=== PATIENT | female | born 1945 | race Caucasian/White ===

== ENCOUNTER 2018-06-19 14:02 | Inpatient (IN) | payer BC, MEDICARE ==
[~2018-06-19] VITALS: Ht 167.6 cm; Wt 99.4 kg
[2018-06-19] VITALS (9 sets, daily range): BP systolic 103–146; BP diastolic 54–117
--- NOTE | ~2018-06-19 | EKG ---
[place], [place] ELECTROCARDIOGRAM REPORT NAME: MAYITO LANDA UNIT #: [id number] ROOM: [facility] DOCTOR: UNRULY DRAFT REPORT BIRTHDATE: [birth year] [facility] Test Date: 2018-06-19 Test Time: 16:18:57 Pat Name: MAYITO LANDA Department: Room: [facility] 1 Gender: F Slide Developer: : 1945 Requested By: CROW MARIN Order Number: [id number] Reading MD: Aquiles Jean MD Measurements Intervals [place] Rate: 140 P: [place]: QRS: -1 QRSD: 88 T: 145 QT: 323 QTc: 493 Interpretive Statements Atrial fibrillation Frequent PVCs Low voltage, extremity leads Abnormal R-wave progression, late transition Nonspecific T abnormalities, lateral leads Compared to earlier ECG this date PVCs are now present Electronically Signed On 06-19-2018 17:35:46 PST by Aquiles Jean MD CM:EKGRPT:ELECTROCARDIOGRAM REPORT [id number] 1735 CROW PAZ DRAFT REPORT CROW MARIN DO
--- NOTE | ~2018-06-19 | EKG ---
[place], [place] ELECTROCARDIOGRAM REPORT NAME: MAYITO LANDA UNIT #: [id number] ROOM: 515 DOCTOR: UNRULY DRAFT REPORT BIRTHDATE: [birth year] [facility] [place] [facility] Test Date: 2018-06-19 Test Time: 14:17:19 Pat Name: MAYITO LANDA Department: Room: [facility] Gender: F Director Clinical Applications: : 1945 Requested By: BONI WATSON Order Number: [id number] Reading MD: Aquiles Jean MD Measurements Intervals [place] Rate: 162 P: [place]: QRS: 4 QRSD: 92 T: 148 QT: 279 QTc: 459 Interpretive Statements Atrial fibrillation with rapid V-rate Low voltage, extremity leads Abnormal R-wave progression, late transition Nonspecific T abnormalities, lateral leads No previous ECG available for comparison Electronically Signed On 06-19-2018 17:30:44 PST by Aquiles Jean MD CM:EKGRPT:ELECTROCARDIOGRAM REPORT 1417 1730 BONI PAZ DRAFT REPORT BONI WATSON DO
--- NOTE | ~2018-06-19 | PR ---
[place], [place] PROGRESS NOTE NAME: MAYITO LANDA [facility] #: [id number] UNIT #: [id number] ROOM: 515 DOCTOR: JOSE DALTON MD BIRTHDATE: [birth year] DOS: 06/21/2018 SUBJECTIVE: The patient was seen at her bedside today, 06/21/2018, for followup of her newly documented atrial fibrillation with rapid ventricular response. The patient's rate remained somewhat difficult to control. I reviewed her echocardiogram yesterday and it does show global hypokinesis of the left ventricle with a moderately dilated left ventricular chamber. There is mild concentric left ventricular hypertrophy. Estimated ejection fraction is between 30% and 35% and diastole could not be fully assessed. The left atrium and right atrium were both severely dilated and the inferior vena cava was also dilated consistent with elevated central venous pressures. PHYSICAL EXAMINATION: VITAL SIGNS: Today, her pulse is 110 and irregularly irregular. Blood pressure is 110/74. She is afebrile. NECK: Supple. She has no jugular distention. She does have mild hepatojugular reflux. Carotids are full. There are no bruits. She has no neck or supraclavicular masses and no thyromegaly. LUNGS: Respirations are unlabored. CHEST: Has decreased breath sounds at the bases. ABDOMEN: Benign. EXTREMITIES: Showed trace edema. IMPRESSION: 1. Newly documented atrial fibrillation with rapid ventricular response. 2. Acute combined systolic and diastolic heart failure. 3. Essential hypertension. 4. Probable type 2 diabetes mellitus. 5. Dilated cardiomyopathy with ejection fraction between 30% and 35%. PLAN: It is not clear at this point whether the patient's cardiomyopathy precipitated her atrial fibrillation or whether she might have a tachycardia-induced cardiomyopathy. Thus far, her evaluation has been otherwise unremarkable with normal thyroid indices, etc. We will proceed with a pharmacologic stress test in the morning to evaluate for the possibility of ischemia as a cause for her left ventricular dysfunction. If that is unremarkable, then efforts will be made to control her rate and provide guideline directed medical therapies. If her left ventricular function does not improve with an improvement in her heart rate, she may be a candidate ultimately for defibrillator therapy. Please note her atria are both extremely large and therefore the chances of her obtaining and maintaining sinus rhythm with a cardioversion are very small. We will anticoagulate her while we provide rate control, but I do not plan at this point to consider a cardioversion. I thank the hospitalist physicians for asking our advice regarding her care. [place], [place] PROGRESS NOTE NAME: MAYITO LANDA UNIT #: [id number] ROOM: [facility] DOCTOR: JOSE DALTON MD BIRTHDATE: [birth year] JOSE DALTON MD CM:PNTRANS [phone] JOSE DALTON MD 06/22/18 1839 interface
--- NOTE | ~2018-06-19 | EKG ---
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
--- NOTE | ~2018-06-19 | PR ---
[place], [place] PROGRESS NOTE NAME: MAYITO LANDA UNIT #: [id number] ROOM: 515 DOCTOR: JOSE DALTON MD BIRTHDATE: [birth year] DOS: 06/22/2018 SUBJECTIVE: The patient was seen in the Cardiology Department prior to her pharmacologic stress test. She denies any problems overnight and specifically does not have dyspnea, palpitations, or chest discomfort. She is a 73-year-old woman who presented initially with worsening cough, dyspnea, and peripheral edema. She was found to be in atrial fibrillation with a rapid ventricular response. Her echocardiogram done yesterday did show a moderately dilated left ventricle with global hypokinesis, mild concentric left ventricular hypertrophy, and an ejection fraction between 30 and 35%. The right ventricle was also moderately dilated. The atria were severely dilated. She did not have any significant valvular disease. PHYSICAL EXAMINATION: VITAL SIGNS: Today, her pulse is 84 and irregularly irregular. Blood pressure is 100/50. She is afebrile. She weighs 99.4 kg and has a body mass index of 35.4. NECK: Supple. She has no jugular distention. Carotids are full. LUNGS: Respirations are unlabored. Chest is clear. HEART: Has an irregularly irregular rhythm without murmurs or gallops. ABDOMEN: Benign. EXTREMITIES: Showed no edema. IMPRESSION: 1. Newly documented atrial fibrillation. 2. Dilated left ventricle with global hypokinesis. It is not clear at this point whether she has a primary cardiomyopathy that led to the atrial fibrillation or if she has a tachymyopathy due to atrial fibrillation with rapid ventricular response. 3. Acute combined systolic and diastolic heart failure. 4. History of hypertension. PLAN: The patient is being anticoagulated and we are working to control her rate. We will proceed with a pharmacologic stress test today to evaluate her for coronary artery disease as a cause for her left ventricular dysfunction. After that, we will emphasize guideline directed medical therapies and close followup for her left ventricular dysfunction. I thank the hospitalist physicians for asking our advice regarding her care. [place], [place] PROGRESS NOTE NAME: MAYITO LANDA UNIT #: [id number] ROOM: 515 DOCTOR: JOSE DALTON MD BIRTHDATE: [birth year] JOSE DALTON MD CM:PNRAMBO [id number] JOSE DALTON MD 06/22/18 1220 interface
--- NOTE | ~2018-06-19 | EKG ---
[place], [place] ELECTROCARDIOGRAM REPORT NAME: MAYITO LANDA UNIT #: [id number] ROOM: [facility] DOCTOR: UNRULY DRAFT REPORT BIRTHDATE: [birth year] [facility] Test Date: 2018-06-19 Test Time: 20:09:06 Pat Name: MAYITO LANDA Department: Room: [facility] 1 Gender: F Music Autographer: Lana Parikh : 1945 Requested By: CROW MARIN Order Number: [id number] Reading MD: Aquiles Jean MD Measurements Intervals [place] Rate: 130 P: [place]: QRS: -24 QRSD: 94 T: 140 QT: 323 QTc: 475 Interpretive Statements Atrial fibrillation Ventricular premature complex Borderline left axis deviation Probable anterior infarct, age indeterminate Lateral leads are also involved No change from earlier ECG this date Electronically Signed On 06-20-2018 9:30:57 PST by Aquiles Jean MD CM:EKGRPT:ELECTROCARDIOGRAM REPORT 08 9 CROW PAZ DRAFT REPORT CROW MARIN DO
[2018-06-19 14:41] LABS: BASO % 0.4 % (0.0-1.0); HEMATOCRIT 40.2 % (37.0-47.0); HEMOGLOBIN 12.8 g/dl (12.0-16.0); LYMPH % 25.2 % (27.0-41.0); MEAN CELL VOLUME 89.9 fl (81.0-99.0); MEAN CORPUSCULAR HGB 28.6 pg (27.0-31.0); MEAN CORPUSCULAR HGB CONC 31.8 g/dl (33.0-37.0); MEAN PLATELET VOLUME 11.5 fl (9.6-12.3); MONO # 0.6 10*3/uL (0.1-1.0); MONO % 7.7 % (3.0-9.0); NEUT # 5.4 10*3/uL (2.3-7.9); NEUT % 66.5 % (47.0-73.0); PLATELET COUNT AUTOMATED 225 10*3/uL (130-400); RED BLOOD COUNT 4.47 10*6/uL (4.10-5.10); RED CELL DISTRI WIDTH 13.6 % (0-14.5); WHITE BLOOD COUNT 8.1 10*3/uL (4.8-10.8)
[2018-06-19 14:50] LABS: ACT PARTIAL THROMBO TIME 23.3 SECONDS (20.8-31.5); INTERNATIONAL NORM RATIO 1.1 (2.0-3.5)
[2018-06-19 14:57] LABS: ALBUMIN 3.4 gm/dl (3.1-4.5); ALKALINE PHOSPHATASE 91 U/L (45-117); BUN 11 mg/dl (7-24); CHLORIDE 94 mmol/L (98-107); CREATININE 0.74 mg/dL (0.55-1.02); LIPASE 205 U/L (73-393); POTASSIUM 3.6 mmol/L (3.5-5.1); SGOT/AST 17 IU/L (3-35); SGPT/ALT 25 U/L (12-78); SODIUM 130 mmol/L (136-145); TOTAL PROTEIN 6.7 gm/dL (6.4-8.2)
[2018-06-19 15:00] LABS: TROPONIN I 0.022 ng/ml (<0.045)
[2018-06-19] MEDS ORDERED: CLARITIN10 MG PO (18:04)
[2018-06-20] VITALS (8 sets, daily range): BP systolic 95–130; BP diastolic 53–95
[2018-06-20 07:25] LABS: BASO % 0.4 % (0.0-1.0); EOS % 0.2 % (1.0-4.0); HEMATOCRIT 39.9 % (37.0-47.0); HEMOGLOBIN 12.7 g/dl (12.0-16.0); LYMPH # 2.1 10*3/uL (1.3-4.4); LYMPH % 23.3 % (27.0-41.0); MEAN CELL VOLUME 88.1 fl (81.0-99.0); MEAN CORPUSCULAR HGB CONC 31.8 g/dl (33.0-37.0); MEAN PLATELET VOLUME 11.8 fl (9.6-12.3); MONO % 10.4 % (3.0-9.0); NEUT % 65.4 % (47.0-73.0); PLATELET COUNT AUTOMATED 237 10*3/uL (130-400); RED BLOOD COUNT 4.53 10*6/uL (4.10-5.10); RED CELL DISTRI WIDTH 13.6 % (0-14.5); WHITE BLOOD COUNT 9.2 10*3/uL (4.8-10.8)
[2018-06-20 07:52] LABS: CHLORIDE 94 mmol/L (98-107); POTASSIUM 3.3 mmol/L (3.5-5.1); SODIUM 132 mmol/L (136-145)
[2018-06-20 08:07] LABS: ALBUMIN 3.5 gm/dl (3.1-4.5); ALKALINE PHOSPHATASE 86 U/L (45-117); BUN 9 mg/dl (7-24); CHOLESTEROL 113 mg/dL (<200); CREATININE 0.63 mg/dL (0.55-1.02); HDL CHOLESTEROL 49 mg/dl (40-60); LDL CHOLESTEROL 45 mg/dL (9-159); SGOT/AST 16 IU/L (3-35); SGPT/ALT 23 U/L (12-78); TOTAL PROTEIN 6.6 gm/dL (6.4-8.2); TRIGLYCERIDES 93 mg/dl (<150); VLDL CHOLESTEROL 19 mg/dL (6-40)
[2018-06-20 08:47] LABS: VITAMIN D, 25-HYDROXY 10.5 ng/mL (30-100)
[2018-06-21] VITALS (10 sets, daily range): BP systolic 90–123; BP diastolic 50–82
[2018-06-21 06:25] LABS: BASO % 0.3 % (0.0-1.0); EOS % 0.1 % (1.0-4.0); HEMATOCRIT 39.6 % (37.0-47.0); HEMOGLOBIN 12.2 g/dl (12.0-16.0); LYMPH # 1.8 10*3/uL (1.3-4.4); LYMPH % 19.3 % (27.0-41.0); MEAN CELL VOLUME 89.8 fl (81.0-99.0); MEAN CORPUSCULAR HGB 27.7 pg (27.0-31.0); MEAN CORPUSCULAR HGB CONC 30.8 g/dl (33.0-37.0); MEAN PLATELET VOLUME 11.2 fl (9.6-12.3); MONO % 9.9 % (3.0-9.0); NEUT # 6.7 10*3/uL (2.3-7.9); PLATELET COUNT AUTOMATED 229 10*3/uL (130-400); RED BLOOD COUNT 4.41 10*6/uL (4.10-5.10); RED CELL DISTRI WIDTH 13.7 % (0-14.5); WHITE BLOOD COUNT 9.6 10*3/uL (4.8-10.8)
[2018-06-21 06:35] LABS: BUN 9 mg/dl (7-24); CHLORIDE 96 mmol/L (98-107); CREATININE 0.54 mg/dL (0.55-1.02); POTASSIUM 3.4 mmol/L (3.5-5.1); SODIUM 133 mmol/L (136-145)
[2018-06-21 06:49] LABS: DIGOXIN 0.81 ng/ml (0.8-2.0)
[2018-06-22] VITALS (8 sets, daily range): BP systolic 94–110; BP diastolic 50–76
[2018-06-22 06:43] LABS: BUN 12 mg/dl (7-24); CHLORIDE 98 mmol/L (98-107); CREATININE 0.51 mg/dL (0.55-1.02); POTASSIUM 3.9 mmol/L (3.5-5.1); SODIUM 135 mmol/L (136-145)
[2018-06-22 06:53] LABS: DIGOXIN 1.06 ng/ml (0.8-2.0)
[2018-06-23] VITALS: BP 102/72
[2018-06-23 08:00] VITALS: BP 110/68
[2018-06-23 12:00] VITALS: BP 103/72
[2018-06-23] MEDS ORDERED: FUROSEMIDE20 M1 PO (13:39)
[2018-06-23] MEDS ORDERED: XARE20MG PO (13:39)
[2018-06-23] MEDS ORDERED: TOPROL XL50 M1 PO (13:39)
[2018-06-23] MEDS ORDERED: DIGITEK125 MCG PO (13:39)
[2018-06-23] MEDS ORDERED: LISINOPRIL2.5 MG PO (13:39)
== END 2018-06-23 16:00 | disposition home or self-care (01) | DRG 308 ==
LOC: ED 14:02 → EDHOLD 15:15 → 5E 15:15
PROVIDERS: Emergency Medicine; Student in an Organized Health Care Education/Training Program; ADMIT Internal Medicine
PROC: 3E073KZ Introduction of Other Diagnostic Substance into Coronary Artery, Percutaneous Approach (ICD-10-PCS; principal; 2018-06-22)
PROC: 4A02XM4 Measurement of Cardiac Total Activity, External Approach (ICD-10-PCS; principal; 2018-06-22)
DX: I48.91 Unspecified atrial fibrillation (principal); I50.43 Acute on chronic combined systolic (congestive) and diastolic (congestive) heart failure; E87.2 Acidosis; E87.1 Hypo-osmolality and hyponatremia; I11.0 Hypertensive heart disease with heart failure; J01.00 Acute maxillary sinusitis, unspecified; E87.8 Other disorders of electrolyte and fluid balance, not elsewhere classified; I42.0 Dilated cardiomyopathy; J01.90 Acute sinusitis, unspecified; Z90.49 Acquired absence of other specified parts of digestive tract; Z90.710 Acquired absence of both cervix and uterus; Z82.49 Family history of ischemic heart disease and other diseases of the circulatory system; E11.65 Type 2 diabetes mellitus with hyperglycemia

== ENCOUNTER → 2018-06-29 | Outpatient (CLI) | payer BC ==
[~2018-06-29] MED LIST: CLARITIN10 MG PO; DIGITEK125 MCG PO; FUROSEMIDE20 M1 PO; LISINOPRIL2.5 MG PO; TOPROL XL50 M1 PO; XARE20MG PO
[2018-06-29 13:46] LABS: BUN 13 mg/dl (7-24); CHLORIDE 97 mmol/L (98-107); CREATININE 0.61 mg/dL (0.55-1.02); POTASSIUM 3.8 mmol/L (3.5-5.1); SODIUM 137 mmol/L (136-145)
[2018-06-29 14:00] LABS: DIGOXIN 0.99 ng/ml (0.8-2.0)
== END | disposition home or self-care (01) ==
LOC: RESCLI 02:58
PROVIDERS: Internal Medicine
DX: I48.2 Chronic atrial fibrillation (principal); I11.0 Hypertensive heart disease with heart failure; I50.22 Chronic systolic (congestive) heart failure; J30.2 Other seasonal allergic rhinitis; E55.9 Vitamin D deficiency, unspecified; Z76.89 Persons encountering health services in other specified circumstances; Z79.899 Other long term (current) drug therapy; Z88.8 Allergy status to other drugs, medicaments and biological substances

== ENCOUNTER → 2018-08-08 | Outpatient (CLI) | payer BC, MEDICARE | END | disposition home or self-care (01) | LOC: RESCLI 01:05 | DX: I11.0 Hypertensive heart disease with heart failure (principal); I50.22 Chronic systolic (congestive) heart failure; I48.2 Chronic atrial fibrillation; J30.2 Other seasonal allergic rhinitis; E55.9 Vitamin D deficiency, unspecified; Z76.89 Persons encountering health services in other specified circumstances; Z79.899 Other long term (current) drug therapy; Z90.710 Acquired absence of both cervix and uterus ==

== ENCOUNTER → 2018-08-09 | Outpatient (CLI) | payer BC, MEDICARE | END | disposition home or self-care (01) | LOC: CARD 12:45 | DX: I48.0 Paroxysmal atrial fibrillation (principal); I42.8 Other cardiomyopathies; I50.43 Acute on chronic combined systolic (congestive) and diastolic (congestive) heart failure; I51.7 Cardiomegaly ==

== ENCOUNTER → 2018-11-21 | Outpatient (CLI) | payer BC, MEDICARE ==
[2018-11-21 12:00] LABS: ALBUMIN 4.1 gm/dl (3.1-4.5); ALKALINE PHOSPHATASE 94 U/L (45-117); BUN 16 mg/dl (7-24); CHLORIDE 103 mmol/L (98-107); CREATININE 0.79 mg/dL (0.55-1.02); SGOT/AST 15 IU/L (3-35); SGPT/ALT 29 U/L (12-78); SODIUM 139 mmol/L (136-145); TOTAL PROTEIN 7.7 gm/dL (6.4-8.2)
== END | disposition home or self-care (01) ==
LOC: RESCLI 00:27
PROVIDERS: Internal Medicine
DX: I48.2 Chronic atrial fibrillation (principal); I11.0 Hypertensive heart disease with heart failure; I50.22 Chronic systolic (congestive) heart failure; J30.2 Other seasonal allergic rhinitis; E55.9 Vitamin D deficiency, unspecified; Z79.899 Other long term (current) drug therapy; Z88.8 Allergy status to other drugs, medicaments and biological substances

== ENCOUNTER → 2019-03-07 | Outpatient (CLI) | payer BC, MEDICARE | END | disposition home or self-care (01) | LOC: RESCLI 01:54 | DX: Z12.11 Encounter for screening for malignant neoplasm of colon (principal); I48.2 Chronic atrial fibrillation; I11.0 Hypertensive heart disease with heart failure; I50.32 Chronic diastolic (congestive) heart failure; E55.9 Vitamin D deficiency, unspecified; J30.2 Other seasonal allergic rhinitis; Z79.899 Other long term (current) drug therapy ==

== ENCOUNTER → 2019-05-07 | Outpatient (CLI) | payer BC, MEDICARE ==
[2019-05-07 10:53] LABS: BASO % 0.5 % (0.0-1.0); EOS # 0.1 10*3/uL (0.0-0.4); EOS % 1.1 % (1.0-4.0); HEMATOCRIT 40.2 % (37.0-47.0); HEMOGLOBIN 12.2 g/dl (12.0-16.0); LYMPH # 2.3 10*3/uL (1.3-4.4); LYMPH % 40.3 % (27.0-41.0); MEAN CELL VOLUME 96.6 fl (81.0-99.0); MEAN CORPUSCULAR HGB 29.3 pg (27.0-31.0); MEAN CORPUSCULAR HGB CONC 30.3 g/dl (33.0-37.0); MEAN PLATELET VOLUME 12.2 fl (9.6-12.3); MONO # 0.5 10*3/uL (0.1-1.0); MONO % 9.7 % (3.0-9.0); NEUT # 2.7 10*3/uL (2.3-7.9); PLATELET COUNT AUTOMATED 156 10*3/uL (130-400); RED BLOOD COUNT 4.16 10*6/uL (4.10-5.10); RED CELL DISTRI WIDTH 13.4 % (0-14.5); WHITE BLOOD COUNT 5.6 10*3/uL (4.8-10.8)
[2019-05-07 11:15] LABS: ALBUMIN 3.6 gm/dl (3.1-4.5); ALKALINE PHOSPHATASE 82 U/L (45-117); BUN 21 mg/dl (7-24); CHLORIDE 104 mmol/L (98-107); CHOLESTEROL 166 mg/dL (<200); CREATININE 0.75 mg/dL (0.55-1.02); HDL CHOLESTEROL 57 mg/dl (40-60); LDL CHOLESTEROL 91 mg/dL (9-159); SGOT/AST 18 IU/L (3-35); SGPT/ALT 34 U/L (12-78); SODIUM 139 mmol/L (136-145); TRIGLYCERIDES 89 mg/dl (<150); VLDL CHOLESTEROL 18 mg/dL (6-40)
[2019-05-07 11:25] LABS: DIGOXIN 0.69 ng/ml (0.8-2.0)
== END | disposition home or self-care (01) ==
LOC: LAB 10:11
PROVIDERS: Internal Medicine
DX: I48.20 Chronic atrial fibrillation, unspecified (principal)

== ENCOUNTER → 2019-05-24 | Outpatient (CLI) | payer BC, MEDICARE | END | disposition home or self-care (01) | LOC: RESCLI 00:35 | DX: Z12.39 Encounter for other screening for malignant neoplasm of breast (principal); E55.9 Vitamin D deficiency, unspecified; I48.20 Chronic atrial fibrillation, unspecified; I11.0 Hypertensive heart disease with heart failure; I50.22 Chronic systolic (congestive) heart failure; J30.2 Other seasonal allergic rhinitis; Z79.899 Other long term (current) drug therapy ==

== ENCOUNTER → 2020-05-06 | Outpatient (CLI) | payer BC ==
[2020-05-06 14:06] LABS: BASO % 0.5 % (0.0-1.0); EOS # 0.1 10*3/uL (0.0-0.4); EOS % 0.9 % (1.0-4.0); HEMATOCRIT 42.5 % (37.0-47.0); LYMPH # 2.8 10*3/uL (1.3-4.4); LYMPH % 35.4 % (27.0-41.0); MEAN CELL VOLUME 92.8 fl (81.0-99.0); MEAN CORPUSCULAR HGB 28.4 pg (27.0-31.0); MEAN CORPUSCULAR HGB CONC 30.6 g/dl (33.0-37.0); MEAN PLATELET VOLUME 11.2 fl (9.6-12.3); MONO # 0.9 10*3/uL (0.1-1.0); MONO % 11.5 % (3.0-9.0); NEUT % 51.3 % (47.0-73.0); PLATELET COUNT AUTOMATED 188 10*3/uL (130-400); RED BLOOD COUNT 4.58 10*6/uL (4.10-5.10); RED CELL DISTRI WIDTH 13.5 % (0-14.5); WHITE BLOOD COUNT 7.8 10*3/uL (4.8-10.8)
[2020-05-06 14:22] LABS: ALBUMIN 3.7 gm/dl (3.1-4.5); ALKALINE PHOSPHATASE 97 U/L (45-117); BUN 17 mg/dl (7-24); CHLORIDE 102 mmol/L (98-107); CREATININE 0.77 mg/dL (0.55-1.02); POTASSIUM 4.2 mmol/L (3.5-5.1); SGOT/AST 19 IU/L (3-35); SGPT/ALT 32 U/L (12-78); SODIUM 138 mmol/L (136-145); TOTAL PROTEIN 7.7 gm/dL (6.4-8.2)
[2020-05-06 14:35] LABS: DIGOXIN 0.97 ng/ml (0.8-2.0)
== END | disposition home or self-care (01) ==
LOC: RESCLI 00:28
PROVIDERS: Student in an Organized Health Care Education/Training Program; ATTEND Internal Medicine Nephrology
DX: E55.9 Vitamin D deficiency, unspecified (principal); J30.2 Other seasonal allergic rhinitis; I11.0 Hypertensive heart disease with heart failure; I50.22 Chronic systolic (congestive) heart failure; I48.20 Chronic atrial fibrillation, unspecified; Z79.899 Other long term (current) drug therapy; Z90.710 Acquired absence of both cervix and uterus; Z90.721 Acquired absence of ovaries, unilateral; Z98.890 Other specified postprocedural states

== ENCOUNTER → 2024-02-26 | Outpatient (CLI) | payer MEDICARE | END | disposition home or self-care (01) | LOC: CARD 08:30 | PROVIDERS: ATTEND Internal Medicine Cardiovascular Disease | DX: I08.1 Rheumatic disorders of both mitral and tricuspid valves (principal); R06.09 Other forms of dyspnea ==